=== PATIENT | male | born 1960 | race African-American/Black ===

== ENCOUNTER 2021-08-17 05:44 | Inpatient (IN) | payer SELFPAY ==
[2021-08-17] MEDS ORDERED: Nitroglycerin 2% Ointment 1 INCH/1 GM Packet ONE (06:03)
[2021-08-17 06:08] LABS: #Lymphocytes 0.9 thou/uL (1.20-3.40); #Monocytes 0.4 thou/uL (0.11-0.59); %Basophils 0.4 % (0.0-1.0); %Eosinophils 0.3 % (0.0-10.0); %Monocytes 5.2 % (0.0-10.0); %Neutrophils 83.1 % (42.0-75.0); Hemoglobin 14.7 g/dL (14.0-18.0); Mean Corpuscular HGB CONC 35.7 g/dL (32.0-36.0); Mean Corpuscular Hemoglobin 35.7 pg (27.0-31.0); Mean Platelet Volume 7.1 fL (7.4-10.4); Platelet Count 203 thou/uL (130-400); RBC Distribution Width 11.9 % (11.5-14.5); Red Blood Cell (RBC) Count 4.13 mill/uL (4.70-6.10); White Blood Cell (WBC) Count 8.5 thou/uL (4.8-10.8)
[2021-08-17 06:31] LABS: ALT (SGPT) 16 U/L (8-55); AST (SGOT) 37 U/L (5-34); Albumin 4.3 g/dL (3.4-4.8); Alkaline Phosphatase 77 U/L (40-110); Anion Gap 11 mmol/L (10-20); BUN (Urea Nitrogen) 14 mg/dL (8.4-25.7); Calc. Creatinine Clearance 0 mL/min (70-130); Calcium 9.6 mg/dL (7.8-10.44); Carbon Dioxide 24 mmol/L (23-31); Chloride 107 mmol/L (98-107); Globulin 4.4 g/dL (2.4-3.5); Glucose 131 mg/dL (80-115); Potassium 3.4 mmol/L (3.5-5.1); Protein, Total 8.7 g/dL (5.8-8.1); Sodium 139 mmol/L (136-145)
[2021-08-17 06:44] LABS: CK (CPK) 464 U/L (30-200)
[2021-08-17 07:08] LABS: CKMB 22.6 ng/mL (0-6.6)
[2021-08-17] MEDS ORDERED: Enoxaparin Sodium 80 MG/0.8 ML SYRINGE ONE (07:27)
[2021-08-17] MEDS ORDERED: Nitroglycerin 0.4 MG TAB (25 Tab Bottle) SL PRN (08:07)
[2021-08-17] MEDS ORDERED: Ondansetron PF 4 MG/2 ML Vial IVP PRN (08:07)
[2021-08-17] MEDS ORDERED: Morphine 2 MG/ML VIAL ONE (08:40)
[2021-08-17] MEDS ORDERED: Nitroglycerin 50 MG/250 ML BOT 250 ML ONE (08:40)
[2021-08-17 09:05] LABS: Troponin I 3.804 ng/mL (< 0.028)
[2021-08-17 09:07] LABS: Hemoglobin A1c 4.8 % (4.0-6.0)
[2021-08-17 09:32] LABS: Acetaminophen Less than 10.0 mcg/mL (10.0-30.0); Alcohol Less than 10 mg/dL (Less than 10); Salicylate Less than 8.0 mg/dL (15.0-30.0)
[2021-08-17] MEDS: Nitroglycerin 50 MG/250 ML BOT 250 ML IVPB SCH ×2 (11:48→18:15)
[2021-08-17] MEDS: Nicotine 14 MG PATCH TD SCH (11:48)
[2021-08-17 11:57] LABS: Amphetamine Not Detected (NotDetected); Barbiturates Screen Not Detected (NotDetected); Benzodiazepine Screen Not Detected (NotDetected); Cocaine Metabolite Screen Detected (NotDetected); Methadone Not Detected (NotDetected); Methamphetamine Not Detected (NotDetected); Opiate Screen Detected (NotDetected); Oxycodone Screen Not Detected (NotDetected); Phencyclidine (PCP) Not Detected (NotDetected); THC/Cannabinoid Screen Not Detected (NotDetected); Tricyclic Screen Not Detected (NotDetected)
[2021-08-17 12:31] LABS: SARS-CoV-2 NAA Rapid Test Not Detected (NotDetected)
[2021-08-17 13:12] LABS: Troponin I 11.051 ng/mL (< 0.028)
[2021-08-17] MEDS ORDERED: Communication Order-Pharmacy FS SCH (17:15)
[2021-08-17] MEDS ORDERED: Enoxaparin Sodium 80 MG/0.8 ML SYRINGE SC SCH (19:30)
[2021-08-17] MEDS: Atorvastatin Calcium 40 MG TAB PO SCH (20:24)
[2021-08-17] MEDS: Acetaminophen 325 MG TAB PO PRN (20:24)
[2021-08-18] MEDS: Nitroglycerin 50 MG/250 ML BOT 250 ML IVPB SCH ×2 (02:35→13:11)
[2021-08-18 03:24] LABS: #Lymphocytes 1.3 thou/uL (1.20-3.40); #Monocytes 0.8 thou/uL (0.11-0.59); #Neutrophils 3.8 thou/uL (1.40-6.50); %Basophils 0.2 % (0.0-1.0); %Eosinophils 0.6 % (0.0-10.0); %Lymphocytes 21.9 % (21.0-51.0); %Neutrophils 63.3 % (42.0-75.0); Hemoglobin 12.1 g/dL (14.0-18.0); Mean Corpuscular Hemoglobin 35.3 pg (27.0-31.0); Mean Platelet Volume 6.8 fL (7.4-10.4); Platelet Count 176 thou/uL (130-400); RBC Distribution Width 11.7 % (11.5-14.5); Red Blood Cell (RBC) Count 3.42 mill/uL (4.70-6.10)
[2021-08-18 03:45] LABS: ALT (SGPT) 28 U/L (8-55); AST (SGOT) 165 U/L (5-34); Albumin 3.6 g/dL (3.4-4.8); Alkaline Phosphatase 67 U/L (40-110); Anion Gap 10 mmol/L (10-20); BUN (Urea Nitrogen) 10 mg/dL (8.4-25.7); Bilirubin, Total 0.7 mg/dL (0.2-1.2); Calc. Creatinine Clearance 69 mL/min (70-130); Calcium 8.8 mg/dL (7.8-10.44); Carbon Dioxide 24 mmol/L (23-31); Cardiac Risk 4.9 (Less than 4.5); Chloride 105 mmol/L (98-107); Cholesterol 163 mg/dl (< 200 Desired); Globulin 3.5 g/dL (2.4-3.5); Glucose 113 mg/dL (80-115); HDL Cholesterol 33 mg/dL (>60 Neg Risk); LDL Cholesterol, Calculated 110 mg/dL; Potassium 3.4 mmol/L (3.5-5.1); Protein, Total 7.1 g/dL (5.8-8.1); Sodium 136 mmol/L (136-145); Triglycerides 99 mg/dL (Less than 150)
[2021-08-18] MEDS ORDERED: Electrolyte Replacement Protocol 1 EACH FS PRN (04:30)
[2021-08-18] MEDS: Acetaminophen 325 MG TAB PO PRN ×2 (05:12→11:47)
[2021-08-18] MEDS ORDERED: Potassium Chloride 20 MEQ TAB PO SCH (05:15)
[2021-08-18] MEDS ORDERED: Midazolam HCl 2 mg/2 ml Vial ONE (08:28)
[2021-08-18] MEDS ORDERED: Fentanyl 100 MCG/2 ML VIAL ONE (08:28)
[2021-08-18] MEDS ORDERED: Aspirin Chewable 81 MG TAB PO SCH (09:00)
[2021-08-18] MEDS: Nicotine 14 MG PATCH TD SCH (10:22)
[2021-08-18] MEDS ORDERED: Iopamidol 370 76% 100 ML VIAL ONE (14:03)
[2021-08-18] MEDS: Atorvastatin Calcium 40 MG TAB PO SCH (20:56)
[2021-08-19 05:40] VITALS: BMI 21.9
[2021-08-19] MEDS ORDERED: Clopidogrel Bisulfate 300 MG TAB PO SCH (07:45)
[2021-08-19 07:47] LABS: ALT (SGPT) 18 U/L (8-55); AST (SGOT) 65 U/L (5-34); Albumin 3.4 g/dL (3.4-4.8); Alkaline Phosphatase 65 U/L (40-110); Anion Gap 11 mmol/L (10-20); BUN (Urea Nitrogen) 8 mg/dL (8.4-25.7); Bilirubin, Total 0.7 mg/dL (0.2-1.2); Calc. Creatinine Clearance 79 mL/min (70-130); Calcium 8.6 mg/dL (7.8-10.44); Carbon Dioxide 23 mmol/L (23-31); Chloride 105 mmol/L (98-107); Globulin 3.7 g/dL (2.4-3.5); Glucose 100 mg/dL (80-115); Potassium 3.6 mmol/L (3.5-5.1); Protein, Total 7.1 g/dL (5.8-8.1); Sodium 135 mmol/L (136-145)
[2021-08-19] MEDS: Aspirin 81 mg Enteric Coated Tablet PO SCH (08:42)
[2021-08-19] MEDS: Lisinopril 5 MG TAB PO SCH (08:42)
[2021-08-19] MEDS: Enoxaparin Sodium 40 MG/0.4 ML SYRINGE SC SCH (08:42)
[2021-08-19] MEDS: Nicotine 14 MG PATCH TD SCH (09:54)
[2021-08-19] MEDS: Atorvastatin Calcium 40 MG TAB PO SCH (21:40)
[2021-08-20] MEDS ORDERED: Clopidogrel Bisulfate 75 MG TAB PO SCH (09:00)
[2021-08-20] MEDS: Lisinopril 5 MG TAB PO SCH (10:09)
[2021-08-20] MEDS: Nicotine 14 MG PATCH TD SCH (10:09)
[2021-08-20] MEDS: Aspirin 81 mg Enteric Coated Tablet PO SCH (10:09)
[2021-08-20] MEDS: Enoxaparin Sodium 40 MG/0.4 ML SYRINGE SC SCH (10:09)
[2021-08-20 12:19] VITALS: BP 126/77; TEMP 98.1
== END 2021-08-20 14:07 | disposition home or self-care (01) | DRG 917 ==
LOC: ERS 05:44 → 2NO 06:56 → ERHOLD 07:46 → CCU 10:50 → OBSVTOIN 12:23 → CCU 08-19 15:11 → 2NO 08-19 21:18
PROVIDERS: ADMIT Family Medicine; ATTEND Student in an Organized Health Care Education/Training Program
PROC: 4A023N7 Measurement of Cardiac Sampling and Pressure, Left Heart, Percutaneous Approach (ICD-10-PCS; principal; 2021-08-18)
PROC: B2111ZZ Fluoroscopy of Multiple Coronary Arteries using Low Osmolar Contrast (ICD-10-PCS; 2021-08-18)
PROC: B2151ZZ Fluoroscopy of Left Heart using Low Osmolar Contrast (ICD-10-PCS; 2021-08-18)
DX: T40.5X1A Poisoning by cocaine, accidental (unintentional), initial encounter (principal); I21.A1 Myocardial infarction type 2; I50.23 Acute on chronic systolic (congestive) heart failure; Z20.822 Contact with and (suspected) exposure to COVID-19; I25.10 Atherosclerotic heart disease of native coronary artery without angina pectoris; F17.210 Nicotine dependence, cigarettes, uncomplicated; F14.10 Cocaine abuse, uncomplicated; E87.6 Hypokalemia; E78.00 Pure hypercholesterolemia, unspecified; I11.0 Hypertensive heart disease with heart failure; F11.10 Opioid abuse, uncomplicated; I25.2 Old myocardial infarction; Z79.82 Long term (current) use of aspirin; Z79.02 Long term (current) use of antithrombotics/antiplatelets; Z98.890 Other specified postprocedural states; Z82.49 Family history of ischemic heart disease and other diseases of the circulatory system; Z83.3 Family history of diabetes mellitus; Z71.51 Drug abuse counseling and surveillance of drug abuser
CPT/HCPCS: 36415; 71045; 80053; 80061; 80306; 80307; 82550; 82553; 83036; 84443; 84484; 85025; 93005; 93306; 93458; 96361; 96372; 96374; 99152; 99153; J1650; J2250; J2270; J3010; Q9967; U0002